=== PATIENT | female | born 1965 | race Caucasian/White ===

== ENCOUNTER 2020-05-12 13:42 | Emergency (ER) | payer OTHER ==
[~2020-05-12] VITALS: Ht 177.8 cm; Wt 90.7 kg
[2020-05-12 14:30] LABS: ABSOLUTE BASOPHILS 0.1 thou/uL (0.0-0.2); ABSOLUTE LYMPHOCYTES 2.4 thou/uL (0.8-5.3); ABSOLUTE MONOCYTES 0.6 thou/uL (0.0-1.2); ABSOLUTE NEUTROPHILS 7.9 thou/uL (1.6-8.1); EOSINOPHILS 0.1 %; HEMATOCRIT 42.9 % (37.0-47.0); HEMOGLOBIN 14.2 gm/dL (12.0-15.0); LYMPHOCYTES 22.1 %; MCH 30.6 pg (26.0-34.0); MCV 92.5 fL (80.0-100.0); MONOCYTES 5.2 %; MPV 7.4 fl. (7.2-11.1); NUCLEATED RBCS 0 /100WBC; PLATELET COUNT* 339 thou/uL (150-400); POLYS 71.6 %; RBC 4.63 mil/uL (4.20-5.00); RDW-CV 15.3 % (10.5-14.5); WBC 11.1 thou/uL (4.0-11.0)
[2020-05-12 14:38] LABS: CALCIUM 8.5 mg/dL (8.5-10.1); CREATININE 0.9 mg/dL (0.6-1.3); POTASSIUM 4.9 mmol/L (3.5-5.1)
[2020-05-12 14:43] LABS: ALBUMIN 3.5 g/dL (3.4-5.0); TOTAL BILIRUBIN 0.3 mg/dL (<0.1-1.0); TOTAL PROTEIN 7.7 g/dL (6.4-8.2)
[2020-05-12 14:50] LABS: ALCOHOL 329 mg/dL (<10); SALICYLATE 4.4 mg/dL (2.8-20.0)
[2020-05-12 14:58] LABS: ACETAMINOPHEN < 2 ug/mL (10-30)
[2020-05-12 15:16] LABS: URINE BILIRUBIN NEGATIVE (Negative); URINE BLOOD NEGATIVE (Negative); URINE CLARITY CLEAR; URINE COLOR YELLOW; URINE GLUCOSE-RANDOM NEGATIVE (Negative); URINE KETONES NEGATIVE (Negative); URINE LEUKOCYTES-REFLEX NEGATIVE (Negative); URINE NITRITE-REFLEX NEGATIVE (Negative); URINE PROTEIN NEGATIVE (Negative); URINE SPECIFIC GRAVITY 1.015 (1.005-1.030); URINE UROBILINOGEN 0.2 E.U./dl (0.2-1.0)
[2020-05-12 15:24] LABS: AMP/METHAMP Negative (Negative); BARBITURATES Negative (Negative); BENZODIAZEPINES Negative (Negative); COCAINE Negative (Negative); METHADONE Negative (Negative); OPIATES Negative (Negative); PCP Negative (Negative); THC Negative (Negative)
[2020-05-12] MEDS ORDERED: SERTRALINE HCL100 MG PO (15:48)
[2020-05-12] MEDS ORDERED: [UNRECOGNIZED DRUG - REMARK] (15:48)
[2020-05-12] MEDS ORDERED: ATIVAN1 M1 PO (15:49)
[2020-05-12] MEDS ORDERED: B12 ACTIVE1000 MCG PO (19:43)
[2020-05-12] MEDS ORDERED: ATORVASTATIN CA20 MG PO (19:44)
[2020-05-12] MEDS ORDERED: CHANTIX1 EACH PO (19:44)
[2020-05-12] MEDS ORDERED: FLONASE 0.05%50 MCG NARES (19:44)
[2020-05-12] MEDS ORDERED: MONTELUKAST SODI4 M1 PO (19:44)
[2020-05-12] MEDS ORDERED: DESYREL150 MG PO (19:45)
[2020-05-12] MEDS ORDERED: LEXAPRO 10 MG T10 M2 PO (19:45)
[2020-05-12] MEDS ORDERED: BUSPIRONE HCL15 MG PO (19:45)
[2020-05-12] MEDS ORDERED: OMEPRAZOLE 20 M20 M1 PO (19:46)
[2020-05-12] MEDS ORDERED: TOPROL XL50 MG (19:46)
[2020-05-12] MEDS ORDERED: HYDROXYZINE PAM25 M1 PO (19:47)
[2020-05-13 11:49] VITALS: BP 146/91
== END 2020-05-13 11:50 | disposition home or self-care (01) ==
LOC: M.ERS 13:42
PROVIDERS: Family Medicine
DX: F32.9 Major depressive disorder, single episode, unspecified (principal); F10.129 Alcohol abuse with intoxication, unspecified; Y90.8 Blood alcohol level of 240 mg/100 ml or more; R45.851 Suicidal ideations; Z79.899 Other long term (current) drug therapy